=== PATIENT | female | born 1970 | race Caucasian/White ===

== ENCOUNTER 2017-02-26 23:01 | Emergency (ER) | payer OTHER ==
[2017-02-27] MEDS: IBUPROFEN 600 MG TAB PO (03:01)
== END 2017-02-27 06:07 | disposition home or self-care (01) ==
LOC: E/R 23:01
DX: R07.81 Pleurodynia (principal); M25.532 Pain in left wrist; F17.210 Nicotine dependence, cigarettes, uncomplicated
CPT/HCPCS: 71045; 73110-LT; 99284-25